=== PATIENT | female | born 1975 | race Caucasian/White ===

== ENCOUNTER → 2020-12-13 | Outpatient (CLI) | payer MEDICAID ==
[2020-12-13 11:53] LABS: Basophils # (A) 0.09 X 10*3/uL (0.00-0.10); Basophils % (A) 1.3 %; Eosinophils # (A) 0.33 X 10*3/uL (0.04-0.35); Eosinophils % (A) 4.8 %; HCT 46.1 % (37.2-46.3); HGB 15.2 g/dL (12.0-15.0); Lymphocytes # (A) 1.58 X 10*3/uL (0.90-5.00); MCV 94.1 fL (80.0-97.0); Mean Platelet Volume 11.9 fL (9.5-12.2); Monocytes % (A) 7.3 %; Neutrophils # (A) 4.35 X 10*3/uL (1.80-7.70); Neutrophils % (A) 63.2 %; Platelet Count 197 X 10*3/uL (140-440); RDW 12.3 % (11.5-14.5); WBC 6.88 X 10*3/uL (4.50-10.00)
[2020-12-13 17:29] LABS: BUN/Creat Ratio 15.99 Ratio (12.00-20.00); Globulin 2.9 g/dL (1.6-3.3)
[2020-12-13 17:30] LABS: African American GFR (CKD) 86.7 (60.0-200.0); Albumin 4.7 g/dL (3.8-4.9); Albumin/Globulin Ratio 1.63 (1.60-3.17); Anion Gap 16.5 mmol/L (4.00-12.00); Blood Urea Nitrogen 14.6 mg/dL (9.0-27.0); Calcium 9.6 mg/dL (8.7-10.3); Chol/HDL Ratio 4.69 Ratio; HDL Cholesterol 33.5 mg/dL (40.00-60.00); LDL Cholesterol,Calculated 47.1 mg/dL (0.0-131.0); Non-African American GFR(CKD) 74.8 (60.0-200.0); Potassium 4.7 mmol/L (3.5-5.5); T4, Free (Free Thyroxine) 1.07 ng/dL (0.800-1.800); Total Bilirubin 0.3 mg/dL (0.30-1.20); Total Protein 7.6 g/dL (6.2-8.2); VLDL Calculation 76.4 mg/dL (5.00-40.00)
== END | disposition home or self-care (01) ==
LOC: LABWHC1 07:19
PROVIDERS: ATTEND Internal Medicine
DX: Z11.59 Encounter for screening for other viral diseases (principal); E11.9 Type 2 diabetes mellitus without complications
CPT/HCPCS: 36415; 80053; 80061; 83036; 84439; 84443; 85025; 86803

== ENCOUNTER → 2021-01-02 | Outpatient (CLI) | payer MEDICAID ==
--- NOTE | 2021-01-02 16:21 | MR ---
EXAMINATION TYPE: MR iac wo/w con DATE OF EXAM: 01/02/2021 COMPARISON: NONE HISTORY: Tinnitus, left-sided Hearing Loss, Vertigo TECHNIQUE: Multiplanar, multisequence images of the brain and brainstem is performed without and with IV contras t, utilizing 8.5 mL intravenous Gadavist . Acoustic nerve disorder protocol. FINDINGS: Diffusion weighted images demonstrate no evidence of a recent infarct or other diffusion ab normality. The ventricular system and cisternal spaces are normal in size and appearance. The brain volume is age appropriate. Occasional T2 hyperintense focus, less than 5 scattered lesions are seen. For reference is a 4 mm lesion posterior left frontal lobe axial image 20. Midline structures demonstrate somewhat empty sella morphology. The craniocervical junction appears within normal limits. Normal vascular flow voids are present. A few small mucous retention cysts and/ or polyps in the inferior aspect bilateral maxillary sinuses. Globes are intact bilaterally. Some pro minence of CSF in the surrounding optic nerve sheaths. Nasal septum slightly deviated to right of mid line. No suspicious opacification of the mastoid air cells bilaterally. The vestibulocochlear complexes are symmetric and felt within normal limits. No suspicious enhancing cerebellopontine angle mass is iden tified bilaterally. IMPRESSION: No suspicious findings seen to account for patient's symptoms of tinnitus and left-sided hearing loss. Possible underlying intracranial hypertension. Correlate clinically. Minimal nonspecifi c white matter changes.
== END | disposition home or self-care (01) ==
LOC: RADMRIMAIN 15:13
PROVIDERS: ATTEND Otolaryngology
DX: R42 Dizziness and giddiness (principal); H93.12 Tinnitus, left ear
CPT/HCPCS: 70553; A9585

== ENCOUNTER → 2021-02-02 | Outpatient (CLI) | payer MEDICAID ==
--- NOTE | 2021-02-05 12:19 | MM ---
Reason for exam: screening (asymptomatic). Last mammogram was performed 2 years and 1 month ago. History: Patient is nulliparous. Physical Findings: A clinical breast exam by your physician is recommended on an annual basis and results should be correlated with mammographic findings. MG 3D Screening Mammo W/Cad Bilateral CC and MLO view(s) were taken. Prior study comparison: December 31, 2018, mammogram. November 09, 2016, mammogram. The breast tissue is heterogeneously dense. This may lower the sensitivity of mammography. There is no discrete abnormality. ASSESSMENT: Negative, BI-RAD 1 RECOMMENDATION: Routine screening mammogram of both breasts in 1 year.
== END | disposition home or self-care (01) ==
LOC: RADMAMWWP 13:51
PROVIDERS: ATTEND Internal Medicine
DX: Z12.31 Encounter for screening mammogram for malignant neoplasm of breast (principal)
CPT/HCPCS: 77063; 77067

== ENCOUNTER → 2021-02-19 | Outpatient (CLI) | payer MEDICAID ==
[2021-02-19 11:45] LABS: Creatine Kinase 90 U/L (26-186)
[2021-02-19 11:46] LABS: C Reactive Protein <0.30 mg/dL (0.00-0.80); Rheumatoid Factor, Qnt <10 IU/mL (0-15)
[2021-02-19 21:32] LABS: Appearance,CSF Clear; CSF Tube Number 4; CSF Tube Volume 2; Nucleated Cells, CSF 0 u/L (0-5); Red Blood Cell,CSF 0 u/L (0-10)
[2021-02-19 21:44] LABS: Total Protein,CSF 42 mg/dL (12-60)
== END | disposition home or self-care (01) ==
LOC: LABWHC1 07:43
PROVIDERS: ATTEND Psychiatry & Neurology Neurology
DX: H53.8 Other visual disturbances (principal); H46.9 Unspecified optic neuritis; R90.82 White matter disease, unspecified; R51.9 Headache, unspecified
CPT/HCPCS: 36415; 82040; 82042; 82550; 82784; 83873; 83916; 84157; 85652; 86038; 86140; 86431; 87529; 89050

== ENCOUNTER → 2021-08-23 | Outpatient (CLI) | payer MEDICAID ==
--- NOTE | 2021-08-24 07:15 | US ---
EXAMINATION TYPE: US pelvis complete transvag DATE OF EXAM: 08/23/2021 COMPARISON: NONE CLINICAL HISTORY: R10.2 Pelvic Pain. LT ADNEXA PAIN x 2 MONTHS, Hx OF OVARIAN CYSTS TECHNIQUE: Transvaginal (TV) and Transabdominal (TA) . Transabdominal sonographic images of the pel vis were acquired. Transvaginal sonographic images were medically necessary to better assess the fol lowing anatomy: Date of LMP: 08/03/2021 EXAM MEASUREMENTS: Uterus: 8.9 x 3.5 x 5.0 cm Endometrial Stripe: 0.8 cm Right Ovary: 4.1 x 2.5 x 3.1 cm Left Ovary: 3.6 x 1.5 x 2.5 cm 1. Uterus: Anteverted HETEROGENOUS, ANTERIOR ROUND HETEROGENOUS AREA NOTED FIONA. 1.2 x 1.5 x 1.5cm , MULTIPLE CYSTIC AREAS NOTED IN CERVIX AREA 2. Endometrium: HETEROGENOUS 3. Right Ovary: CYSTIC AREA NOTED FIONA. 2.0x 2.4 x 2.4cm 4. Left Ovary: MULTIPLE HYPOECHOIC AREAS NOTED, LARGEST FIONA. 1.6 x 1.8 x 1.5cm 5. Bilateral Adnexa: wnl 6. Posterior cul-de-sac: wnl IMPRESSION: 1. Probable leiomyomatous change of the uterus. 2. Probable functional right ovarian cyst. Follicular cyst left ovary.
== END | disposition home or self-care (01) ==
LOC: RADUSWWP 15:36
PROVIDERS: ATTEND Obstetrics & Gynecology
DX: N83.02 Follicular cyst of left ovary (principal)
CPT/HCPCS: 76830; 76856

== ENCOUNTER → 2022-03-05 | Outpatient (CLI) | payer MEDICAID ==
--- NOTE | 2022-03-06 18:45 | MM ---
Reason for Exam: Screening (asymptomatic). Last mammogram was performed 1 year(s) and 1 month(s) ago. Patient History: Menarche at age 12. Patient has no children. Last menstrual period: 02/27/2022 Risk Values: Mariana 5 year model risk: 0.9%. NCI Lifetime model risk: 9.3%. Prior Study Comparison: 11/09/2016 Screening Mammogram, Unknown. 12/31/2018 Screening Mammogram, Unknown. 02/02/2021 Bilateral Screening Mammogram, [facility]. Tissue Density: There are scattered fibroglandular densities. Findings: Analyzed By CAD. There is no suspicious group of microcalcifications or new suspicious mass in either breast. Overall Assessment: Negative, BI-RAD 1 Management: Screening Mammogram of both breasts in 1 year. 1. Patient should continue monthly self breast exams. 2. A clinical breast exam by your physician is recommended on an annual basis. 3. This exam should not preclude additional follow-up of suspicious palpable abnormalities. Electronically signed and approved by: Karla iDnh M.D. Radiologist
== END | disposition home or self-care (01) ==
LOC: RADMAMWWP 15:57
PROVIDERS: ATTEND Internal Medicine
DX: Z12.31 Encounter for screening mammogram for malignant neoplasm of breast (principal)
CPT/HCPCS: 77063; 77067

== ENCOUNTER → 2022-03-13 | Outpatient (CLI) | payer MEDICAID ==
[2022-03-13 14:57] LABS: Basophils # (A) 0.08 X 10*3/uL (0.00-0.10); Basophils % (A) 1.4 %; Eosinophils # (A) 0.31 X 10*3/uL (0.04-0.35); Eosinophils % (A) 5.6 %; HGB 14.8 g/dL (12.0-15.0); Immature Grans, Automated 0.4 %; Lymphocytes # (A) 1.79 X 10*3/uL (0.90-5.00); Lymphocytes % (A) 32.1 %; MCH 32.1 pg (27.0-32.0); MCHC 32.9 g/dL (32.0-37.0); MCV 97.6 fL (80.0-97.0); Mean Platelet Volume 11.5 fL (9.5-12.2); Monocytes # (A) 0.48 X 10*3/uL (0.20-1.00); Monocytes % (A) 8.6 %; NRBC Per 100 WBC 0 /100 WBCS (0.0-0.0); Neutrophils % (A) 51.9 %; Platelet Count 191 X 10*3/uL (140-440); RBC 4.61 X 10*6/uL (4.10-5.20); RDW 12.9 % (11.5-14.5); WBC 5.58 X 10*3/uL (4.50-10.00)
[2022-03-13 16:35] LABS: ALT 36 U/L (8-44); AST 18 U/L (13-35); African American GFR (CKD) 96.1 (60.0-200.0); Albumin 4.4 g/dL (3.8-4.9); Albumin/Globulin Ratio 1.78 (1.60-3.17); Alkaline Phosphatase 49 U/L (41-126); BUN/Creat Ratio 17.51 Ratio (12.00-20.00); Blood Urea Nitrogen 14.6 mg/dL (9.0-27.0); Calcium 9.1 mg/dL (8.7-10.3); Carbon Dioxide 24.1 mmol/L (20.0-27.5); Chloride 104 mmol/L (96-109); Chol/HDL Ratio 3.34 Ratio; Globulin 2.5 g/dL (1.6-3.3); Glucose 120 mg/dL (70-110); LDL Cholesterol,Calculated 35.5 mg/dL (0.0-131.0); Non-African American GFR(CKD) 82.9 (60.0-200.0); Potassium 4.3 mmol/L (3.5-5.5); Sodium 140 mmol/L (135-145); Total Protein 6.9 g/dL (6.2-8.2)
== END | disposition home or self-care (01) ==
LOC: LABWHC1 07:01
PROVIDERS: ATTEND Internal Medicine
DX: E11.9 Type 2 diabetes mellitus without complications (principal)
CPT/HCPCS: 36415; 80053; 80061; 83036; 84443; 85025

== ENCOUNTER → 2022-12-25 | Outpatient (CLI) | payer MEDICAID ==
[2022-12-25 11:02] LABS: Basophils % (A) 1.6 %; Eosinophils # (A) 0.33 X 10*3/uL (0.04-0.35); Eosinophils % (A) 5.3 %; HCT 43.9 % (37.2-46.3); HGB 14.7 d/dL (12.0-15.0); Lymphocytes # (A) 1.94 X 10*3/uL (0.90-5.00); Lymphocytes % (A) 31.1 %; MCHC 33.5 d/dL (32.0-37.0); MCV 95.4 FL (80.0-97.0); Mean Platelet Volume 11.1 FL (9.5-12.2); Monocytes # (A) 0.49 X 10*3/uL (0.20-1.00); Monocytes % (A) 7.9 %; NRBC Per 100 WBC 0 X 10*3/uL (0.00-0.01); Neutrophils # (A) 3.36 X 10*3/uL (1.80-7.70); Neutrophils % (A) 53.8 %; Platelet Count 218 X 10*3/uL (140-440); RDW 12.7 % (11.5-14.5); WBC 6.24 X 10*3/uL (4.50-10.00)
[2022-12-25 11:10] LABS: ALT 34 U/L (8-44); AST 17 U/L (13-35); Albumin 4.5 d/dL (3.8-4.9); Albumin/Globulin Ratio 1.73 Ratio (1.60-3.17); Alkaline Phosphatase 47 U/L (41-126); BUN/Creat Ratio 17.88 Ratio (12.00-20.00); Blood Urea Nitrogen 14.3 mg/dL (9.0-27.0); Calcium 9.4 mg/dL (8.7-10.3); Carbon Dioxide 22.9 mmol/L (21.6-31.8); Chloride 106 mmol/L (96-109); Chol/HDL Ratio 3.67 Ratio; Globulin 2.6 d/dL (1.6-3.3); Glucose 128 mg/dL (70-110); LDL Cholesterol,Calculated 33.5 mg/dL (0.0-131.0); Potassium 4.7 mmol/L (3.5-5.5); Sodium 141 mmol/L (135-145); Total Bilirubin 0.3 mg/dL (0.3-1.2); Total Protein 7.1 d/dL (6.2-8.2); Uric Acid 5.6 mg/dL (2.9-7.7)
== END | disposition home or self-care (01) ==
LOC: LABWHC1 07:05
PROVIDERS: ATTEND Internal Medicine
DX: E11.9 Type 2 diabetes mellitus without complications (principal); E78.5 Hyperlipidemia, unspecified; M25.572 Pain in left ankle and joints of left foot
CPT/HCPCS: 36415; 80053; 80061; 84443; 84550; 85025

== ENCOUNTER → 2023-03-31 | Outpatient (CLI) | payer MEDICAID ==
--- NOTE | 2023-03-31 22:18 | MM ---
Reason for Exam: Screening (asymptomatic). Last screening mammogram was performed 12 month(s) ago. Patient History: Menarche at age 12. Patient has no children. Perimenopausal. Last menstrual period: 03/21/2023 Risk Values: Mariana 5 year model risk: 0.9%. NCI Lifetime model risk: 9.2%. Prior Study Comparison: 11/09/2016 Screening Mammogram, Unknown. 12/31/2018 Screening Mammogram, Unknown. 02/02/2021 Bilateral Screening Mammogram, [facility]. 03/05/2022 Bilateral MG 3D screening mammo w/cad, [facility]. Tissue Density: The breast tissue is heterogeneously dense. This may lower the sensitivity of mammography. Findings: Analyzed By CAD. The pattern is symmetrical. Pattern appears symmetrical No suspicious groups of microcalcifications, spiculated or lobular masses, architectural distortion or other secondary signs of malignancy are mammographically apparent. Overall Assessment: Benign, BI-RAD 2 Management: Screening Mammogram of both breasts in 1 year. A negative mammogram report should not preclude additional follow up of suspicious palpable abnormalities. Patient should continue monthly self breast exam. A clinical breast exam by your physician is recommended on an annual basis and results should be correlated with mammographic findings. Electronically signed and approved by: Anjum Sprague D.O. Radiologis
== END | disposition home or self-care (01) ==
LOC: RADMAMWWP 07:15
PROVIDERS: ATTEND Internal Medicine
DX: Z12.31 Encounter for screening mammogram for malignant neoplasm of breast (principal)
CPT/HCPCS: 77063; 77067

== ENCOUNTER → 2023-06-03 | Outpatient (CLI) | payer MEDICAID ==
[2023-06-03 11:06] LABS: Basophils # (A) 0.07 X 10*3/uL (0.00-0.10); Basophils % (A) 1.1 %; Eosinophils # (A) 0.22 X 10*3/uL (0.04-0.35); Eosinophils % (A) 3.6 %; HCT 43.8 % (37.2-46.3); HGB 14.5 g/dL (12.0-15.0); Lymphocytes # (A) 2.07 X 10*3/uL (0.90-5.00); Lymphocytes % (A) 33.8 %; MCH 31.7 pg (27.0-32.0); MCHC 33.1 g/dL (32.0-37.0); MCV 95.6 FL (80.0-97.0); Mean Platelet Volume 11.2 FL (9.5-12.2); Monocytes # (A) 0.47 X 10*3/uL (0.20-1.00); Monocytes % (A) 7.7 %; NRBC Per 100 WBC 0 X 10*3/uL (0.00-0.01); Neutrophils # (A) 3.27 X 10*3/uL (1.80-7.70); Neutrophils % (A) 53.3 %; Platelet Count 178 X 10*3/uL (140-440); RBC 4.58 X 10*6/uL (4.10-5.20); RDW 13.1 % (11.5-14.5); WBC 6.13 X 10*3/uL (4.50-10.00)
[2023-06-03 11:27] LABS: ALT 40 U/L (8-44); AST 24 U/L (13-35); Albumin 4.6 g/dL (3.8-4.9); Albumin/Globulin Ratio 1.59 Ratio (1.60-3.17); Alkaline Phosphatase 50 U/L (41-126); BUN/Creat Ratio 21.88 Ratio (12.00-20.00); Blood Urea Nitrogen 17.5 mg/dL (9.0-27.0); Calcium 9.6 mg/dL (8.7-10.3); Carbon Dioxide 27.1 mmol/L (21.6-31.8); Chloride 102 mmol/L (96-109); Chol/HDL Ratio 3.23 Ratio; Globulin 2.9 g/dL (1.6-3.3); Glucose 134 mg/dL (70-110); LDL Cholesterol,Calculated 29.6 mg/dL (0.0-131.0); Lipase 25 U/L (14-63); Potassium 4.7 mmol/L (3.5-5.5); Sodium 139 mmol/L (135-145); Total Bilirubin 0.3 mg/dL (0.3-1.2); Total Protein 7.5 g/dL (6.2-8.2)
== END | disposition home or self-care (01) ==
LOC: LABWHC1 06:58
PROVIDERS: ATTEND Internal Medicine
DX: E11.9 Type 2 diabetes mellitus without complications (principal); R10.13 Epigastric pain
CPT/HCPCS: 36415; 80053; 80061; 83690; 84443; 85025

== ENCOUNTER → 2023-06-11 | Outpatient (CLI) | payer MEDICAID ==
--- NOTE | 2023-06-12 12:43 | US ---
EXAMINATION TYPE: US abdomen complete DATE OF EXAM: 06/11/2023 COMPARISON: NONE CLINICAL INDICATION: Female, 48 years old with history of R10.13 EPIGASTRIC PAIN; epigastric pain x 2 -3 months TECHNIQUE: Multiple sonographic images of the abdomen are obtained. FINDINGS: EXAM MEASUREMENTS: Liver Length: 21.2 cm Gallbladder Wall: 0.2 cm CBD: 0.4 cm Spleen: 10.9 cm Right Kidney: 12.0 x 4.5 x 5.1 cm Left Kidney: 11.2 x 4.9 x 6.4 cm Pancreas: Limited by bowel gas. Liver: enlarged liver is coarsened and slightly increased in echo pattern. Gallbladder: multiple mobile dependant stones seen, normal wall Evidence for sonographic Birch's sign: no CBD: wnl Spleen: wnl Right Kidney: wnl Left Kidney: wnl Upper IVC: wnl Abd Aorta: wnl. IMPRESSION: 1. Hepatomegaly correlate for underlying hepatocellular disease\hepatic steatosis. 2. Cholelithiasis with no diagnostic evidence of cholecystitis.
== END | disposition home or self-care (01) ==
LOC: RADUSWWP 06:51
PROVIDERS: ATTEND Internal Medicine
DX: R10.13 Epigastric pain (principal); R16.0 Hepatomegaly, not elsewhere classified; K76.0 Fatty (change of) liver, not elsewhere classified; K80.20 Calculus of gallbladder without cholecystitis without obstruction
CPT/HCPCS: 76700

== ENCOUNTER → 2024-06-18 | Outpatient (CLI) | payer MEDICAID, SELFPAY ==
--- NOTE | 2024-06-18 07:37 | MM ---
Reason for Exam: Screening (asymptomatic). Last mammogram was performed 1 year(s) and 3 month(s) ago. Patient History: Menarche at age 12. Patient has no children. Perimenopausal. Risk Values: Mariana 5 year model risk: 1.0%. NCI Lifetime model risk: 8.9%. Prior Study Comparison: 12/31/2018 Screening Mammogram, Unknown. 02/02/2021 Bilateral Screening Mammogram, [facility]. 03/05/2022 Bilateral MG 3D screening mammo w/cad, [facility]. 03/31/2023 Bilateral MG 3D screening mammo w/cad, [facility]. Tissue Density: The breasts are heterogeneously dense, which may obscure small masses. Findings: Analyzed By CAD. There is no suspicious group of microcalcifications or new suspicious mass in either breast. Overall Assessment: Benign, BI-RAD 2 Management: Screening Mammogram of both breasts in 1 year. . Patient should continue monthly self-breast exams. A clinical breast exam by your physician is recommended on an annual basis. This exam should not preclude additional follow-up of suspicious palpable abnormalities. Note on Mariana scores and lifetime risk: 1. A Mariana score greater than 3% is considered moderate risk. If this is the case, consider specialist referral to assess eligibility for a risk reducing agent. 2. If overall lifetime risk for the development of breast cancer is 20% or higher, the patient may qualify for future screening with alternating mammogram and breast MRI. [facility], , 06/18/2024 7:34 AM. Electronically signed and approved by: Geo Ch M.D. Radiologis
== END | disposition home or self-care (01) ==
LOC: RADMAMWWP 06:59
PROVIDERS: ATTEND Internal Medicine
DX: Z12.31 Encounter for screening mammogram for malignant neoplasm of breast (principal); R92.333 Mammographic heterogeneous density, bilateral breasts
CPT/HCPCS: 77063; 77067

== ENCOUNTER 2024-08-18 21:23 | Inpatient (IN) | payer MEDICAID ==
--- NOTE | 2024-08-18 21:54 | ED ---
General Adult HPI - General Chief complaint: Headache Stated complaint: Head pain Time Seen by Provider: 08/18/24 21:32 Source: EMS Mode of arrival: EMS - History of Present Illness Initial comments: Patient is a pleasant 49-year-old female past medical history diabetes presenting today for headache. States she has been treated for sinus infection since having a cough on Friday. She was started on Medrol Dosepak and Z-Doyle on Friday by local urgent care. Has had a persistent cough since then, states her symptoms were at their peak yesterday. Today she was coughing about 30 minutes prior to arrival and had sudden onset sharp headache at the front of her head. States she has never had a headache like this before. Denies neck pain. Denies changes in vision, numbness, weakness, slurred speech, dizziness. No pain medications prior to arrival. Rates pain as 8 out of 10. Denies light or sound sensitivity. Is not on blood thinners. Denies fevers or chills. Cough is nonproductive of sputum or hemoptysis. Nasal congestion, no thick nasal discharge. No sore throat. When asked about shortness of breath she states that "I suppose my chest feels tight" which started with onset of her headache. States she is not sure if this is due to being anxious about what could be causing her headache or from recent URI. Otherwise denies chest pain. Denies abdominal pain, nausea, vomiting, melena, hematochezia or diarrhea. - Related Data Home Medications Medication Instructions Recorded Confirmed Atorvastatin [Lipitor] 20 mg PO DAILY 08/19/24 08/19/24 Azithromycin [Zithromax Z Pack] See Taper PO DIRECTED 08/19/24 08/19/24 Dulaglutide [Trulicity] 4.5 mg SQ FR 08/19/24 08/19/24 Empagliflozin [Jardiance] 25 mg PO DAILY 08/19/24 08/19/24 Fenofibrate [Lofibra] 160 mg PO DAILY 08/19/24 08/19/24 L.acidoph,Paracasei, B.lactis 1 cap PO DAILY 08/19/24 08/19/24 [Probiotic] methylPREDNISolone [Medrol Dose See Taper PO DIRECTED 08/19/24 08/19/24 Pack] Allergies Allergy/AdvReac Type Severity Reaction Status Date / Time No Known Allergies Allergy Verified 08/19/24 07:24 Review of Systems ROS Statement: Those systems with pertinent positive or pertinent negative responses have been documented in the HPI. ROS Other: All systems not noted in ROS Statement are negative. Constitutional: Denies: fever, chills Eyes: Denies: vision change ENT: Reports: congestion. Denies: ear pain, throat pain Respiratory: Reports: cough, dyspnea (described as chest tightness). Denies: wheezes, hemoptysis Cardiovascular: Reports: chest pain (as above, described as chest tightness) Gastrointestinal: Denies: abdominal pain, nausea, vomiting, diarrhea, melena, hematochezia Genitourinary: Denies: urgency, dysuria Neurological: Reports: headache. Denies: weakness, numbness, paresthesias, vertigo Psychiatric: Reports: anxiety Past Medical History Past Surgical History: Cholecystectomy General Exam - General Exam Comments Initial Comments: PE: CONSTITUTIONAL: No apparent distress, well appearing SKIN: Warm, dry, no jaundice, hives or petechiae EYES: Pupils are equally round, extraocular movements intact without nystagmus, clear conjunctiva, non-icteric sclera HENT: Normocephalic, atraumatic, moist mucus membranes, oropharynx clear without exudates, no sinus tenderness or fullness, nasal congestion present NECK: , Full range of motion, normal appearance PULMONARY: Clear to auscultation without wheezes, rhonchi, or rales, normal excursion, no accessory muscle use and no stridor CARDIOVASCULAR: Regular rate, rhythm, normal S1 and S2. No appreciated murmurs, rubs or gallops. Strong radial pulses with intact distal perfusion. No lower extremity edema GASTROINTESTINAL: Soft, active bowel sounds throughout, non-tender, non- distended, no palpable masses, no rebound or guarding. No hepatosplenomegaly GENITOURINARY: MUSCULOSKELETAL: Extremities have no gross deformity, no edema, redness, or swelling. No calf swelling NEUROLOGIC:_a/o x 3, GCS 15, normal mentation and speech. Moves all extremities x 4 without motor or sensory deficit, cranial nerves: II (visual escamilla without defects), III, IV and (extraocular movements are intact, pupils are equal with normal reaction to light), V (intact facial sensation and jaw opening), VII (no facial droop), IX and X (normal palate movement, midline uvula, normal voice), XI (symmetrical shoulder shrug and lateral head rotation against resistance), XII (midline tongue protrusion). Motor strength is 5/5 in all extremities. No abnormal movements. Normal muscle tone. Sensation to light touch is intact bilaterally. No cerebellar signs ([id number], [id number], normal) PSYCHIATRIC:_normal mood and affect, thought process is clear and linear Course Vital Signs 08/18/24 08/18/24 08/18/24 21:26 21:30 23:24 Temperature 97.8 F 98.0 F Pulse Rate 69 82 Respiratory 18 18 Rate Blood Pressure 147/103 152/91 136/88 O2 Sat by Pulse 95 95 Oximetry 08/19/24 08/19/24 08/19/24 01:00 02:24 04:00 Temperature Pulse Rate 82 89 66 Respiratory 18 18 Rate Blood Pressure 118/72 120/77 126/79 O2 Sat by Pulse 94 L 97 94 L Oximetry 08/19/24 08/19/24 08/19/24 05:00 06:00 07:30 Temperature 97.8 F Pulse Rate 64 75 76 Respiratory 14 18 16 Rate Blood Pressure 119/80 116/79 124/75 O2 Sat by Pulse 94 L 95 95 Oximetry 08/19/24 08/19/24 08/19/24 08:44 11:53 14:31 Temperature Pulse Rate 82 68 84 Respiratory 18 18 16 Rate Blood Pressure 131/107 130/80 135/80 O2 Sat by Pulse 97 96 96 Oximetry 08/19/24 17:24 Temperature Pulse Rate 81 Respiratory 18 Rate Blood Pressure 128/87 O2 Sat by Pulse 95 Oximetry EKG Findings - EKG Comments: EKG Findings:: Sinus rhythm, rate 62 bpm, intervals within acceptable limits, normal axis, no significant ST elevations or depressions, no arrhythmia. Repeat EKG obtained at 00:15, after pt's episode of chest pain, Shows sinus rhythm HR 81 BPM, intervals w/in acceptable limites, no STEMI, no arrythmia Medical Decision Making - Medical Decision Making Was pt. sent in by a medical professional or institution (, PA, QUARRYING MANAGER, urgent care, hospital, or [facility]...) When possible be specific @ -No Did you speak to anyone other than the patient for history (EMS, parent, family, police, friend...)? What history was obtained from this source @Spoke with EMS personnel, state they were called for sudden onset headache. Blood pressure per EMS was 150/120 Did you review nursing and triage notes (agree or disagree)? Why? @ -I reviewed nursing and triage notes- of note triage note states that the patient has a history of high cholesterol, patient denied Were old charts reviewed (outside hosp., previous admission, EMS record, old EKG, old radiological studies, urgent care reports/EKG's, [facility] records)? Report findings @ -Medical records reviewed Differential Diagnosis (chest pain, altered mental status, abdominal pain women, abdominal pain men, vaginal bleeding, weakness, fever, dyspnea, syncope, headache, dizziness, GI bleed, back pain, seizure, CVA, palpatations, mental he alth, musculoskeletal)? @Differential Headache: Migraine, tension, cluster, central venous thrombosis, temporal arteritis, acute closure glaucoma, intercranial hemorrhage, mastoiditis, sinusitis, head injury, this is not meant to be an all-inclusive list. EKG interpreted by me (3pts min.). @ -As above X-rays interpreted by me (1pt min.). @Reviewed chest x-ray, see no evidence of cardiomegaly, obvious consolidation, no pneumothorax; Radiologist read as findings consistent with bronchitis CT interpreted by me (1pt min.). @ -Personally reviewed CT brain, I see no evidence of hemorrhage or mass effect, agree with radiologist interpretation U/S interpreted by me (1pt. min.). @ -None done What testing was considered but not performed or refused? (CT, X-rays, U/S, labs)? Why? @ -None What meds were considered but not given or refused? Why? @ -None Did you discuss the management of the patient with other professionals (professionals i.e. , PA, QUARRYING MANAGER, lab, RT, psych nurse, social services designee, lithographer apprentice, teacher, recreation officer, case management manager)? Give summary @ -No Was smoking cessation discussed for >3mins.? @ -No Was critical care preformed (if so, how long)? @ Yes 35 minutes Were there social determinants of health that impacted care today? How? (Homelessness, low income, unemployed, alcoholism, drug addiction, transportation, low edu. Level, literacy, decrease access to med. care, halfway, re hab)? @ -No Was there de-escalation of care discussed even if they declined (Discuss DNR or withdrawal of care, Hospice)? @ -No What co-morbidities impacted this encounter? (DM, HTN, Smoking, COPD, CAD, Cancer, CVA, ARF, Chemo, Hep., AIDS, mental health diagnosis, sleep apnea, morbid obesity)? @ -DM Was patient admitted / discharged? Hospital course, mention meds given and route, prescriptions, significant lab abnormalities, going to OR and other pertinent info. @ -Admission -this is a pleasant 49-year female presenting today for sudden onset headache. Started about 30 minutes prior to arrival. Blood pressure on arrival 147/103. On my assessment is approximate 152/90. Headache started s harp in nature. She has no focal neurologic deficits on exam. Does not appear to be in any distress. Discussed patient obtain CT brain. Additionally patient endorsed chest tightness onset of headache, I suspect this is secondary to recent URI and cough, will obtain troponin, chest x-ray, additional basic labs. Patient will be given pain control and IV fluids. Agreeable with plan. Patient did have a brief set of chest pain while waiting completion of workup. On reassessment patient's chest pain has resolved. Headache has improved. States pain was in the center of her chest and sharp in nature. She has no family history of CAD or strokes. Patient herself has never had a stroke or h eart attack. No history of high cholesterol, high blood pressure, is a non- smoker. Troponin 0.234. Will repeat EKG. Patient currently asymptomatic of chest pain. Additionally patient states she has had a prior DVT in her left arm, is a non-smoker, is not on hormone replacement therapy, no recent travel surgery or hospitalization, is not on blood thinning, will obtain D-dimer and BNP. Anticipate administration of aspirin however CT brain has not officially been read by radiologist though I see no evidence of hemorrhage. Patient agreeable with plan of care. CT read and read as negative for acute process. D-dimer of 0.25. Repeat troponin elevated again at 0.659. Will start patient on heparin infusion for NSTEMI and admit. Updated patient to findings and plan, she is agreeable with plan of care. Case was discussed with Dr. Taylor who kindly accepted patient for admission. Undiagnosed new problem with uncertain prognosis? @ -No Drug Therapy requiring intensive monitoring for toxicity (Heparin, Nitro, Insulin, Cardizem)? @ -No Were any procedures done? @ -No Diagnosis/symptom? @ -NSTEMI, headache Acute, or Chronic, or Acute on Chronic? @Acute Uncomplicated (without systemic symptoms) or Complicated (systemic symptoms)? @Complicated Side effects of treatment? @ -No Exacerbation, Progression, or Severe Exacerbation? @ -No Poses a threat to life or bodily function? How? (Chest pain, [place], [place], pneumonia, PE, COPD, DKA, ARF, appy, cholecystitis, CVA, Diverticulitis, Homicidal, Suicidal, threat to staff... and all critical care pts) @ -Yes - Lab Data Result diagrams: 08/19/24 06:08 08/19/24 06:08 Lab Results 08/18/24 08/18/24 08/18/24 Range/Units 22:00 22:37 22:50 WBC 5.91 (4.50-10.00) 10*3/uL RBC 4.44 (4.10-5.20) 10*6/uL Hgb 14.4 (12.0-15.0) g/dL Hct 40.9 (37.2-46.3) % MCV 92.1 (80.0-97.0) fL MCH 32.4 H (27.0-32.0) pg MCHC 35.2 (32.0-37.0) g/dL Plt Count 190 (140-440) 10*3/uL MPV 11.1 (9.5-12.2) fL Immature Gran % (Auto) 0.7 % Neutrophils % 66.6 % Lymphocytes % 22.8 % Monocytes % 7.4 % Eosinophils % 1.7 % Basophils % 0.8 % Immature Gran # 0.04 (0.00-0.04) 10*3/uL Neutrophils # 3.93 (1.80-7.70) 10*3/uL Lymphocytes # 1.35 (0.90-5.00) 10*3/uL Monocytes # 0.44 (0.20-1.00) 10*3/uL Eosinophils # 0.10 (0.04-0.35) 10*3/uL Basophils # 0.05 (0.00-0.10) 10*3/uL PT (10.0-12.5) sec INR (<1.2) APTT (22.0-30.0) sec D-Dimer (<0.60) mg/L FEU Sodium (137-145) mmol/L Potassium (3.5-5.1) mmol/L Chloride (98-107) mmol/L Carbon Dioxide (22-30) mmol/L Anion Gap mmol/L BUN (7-17) mg/dL Creatinine (0.52-1.04) mg/dL Est GFR (CKD-EPI)AfAm (>60 ml/min/1.73 sqM) Est GFR (CKD-EPI)NonAf (>60 ml/min/1.73 sqM) Glucose (74-99) mg/dL POC Glucose (mg/dL) 170 H (70-110) mg/dL POC Glu Helper Electrical ID EHSAN CASTELLANOS Calcium (8.4-10.2) mg/dL Total Bilirubin (0.2-1.3) mg/dL AST (14-36) U/L ALT (4-34) U/L Alkaline Phosphatase (38-126) U/L Troponin I (0.000-0.034) ng/mL NT-Pro-B Natriuret Pep pg/mL Total Protein (6.3-8.2) g/dL Albumin (3.5-5.0) g/dL Influenza Type A (PCR) Not Detected (Not Detectd) Influenza Type B (PCR) Not Detected (Not Detectd) RSV (PCR) Not Detected (Not Detectd) SARS-CoV-2 (PCR) Not Detected (Not Detectd) 08/18/24 08/18/24 08/18/24 Range/Units 22:50 22:50 22:50 WBC (4.50-10.00) 10*3/uL RBC (4.10-5.20) 10*6/uL Hgb (12.0-15.0) g/dL Hct (37.2-46.3) % MCV (80.0-97.0) fL MCH (27.0-32.0) pg MCHC (32.0-37.0) g/dL Plt Count (140-440) 10*3/uL MPV (9.5-12.2) fL Immature Gran % (Auto) % Neutrophils % % Lymphocytes % % Monocytes % % Eosinophils % % Basophils % % Immature Gran # (0.00-0.04) 10*3/uL Neutrophils # (1.80-7.70) 10*3/uL Lymphocytes # (0.90-5.00) 10*3/uL Monocytes # (0.20-1.00) 10*3/uL Eosinophils # (0.04-0.35) 10*3/uL Basophils # (0.00-0.10) 10*3/uL PT 11.2 (10.0-12.5) sec INR 1.0 (<1.2) APTT 21.3 L (22.0-30.0) sec D-Dimer (<0.60) mg/L FEU Sodium 136 L (137-145) mmol/L Potassium 4.0 (3.5-5.1) mmol/L Chloride 103 (98-107) mmol/L Carbon Dioxide 17 L (22-30) mmol/L Anion Gap 16 mmol/L BUN 21 H (7-17) mg/dL Creatinine 0.65 (0.52-1.04) mg/dL Est GFR (CKD-EPI)AfAm >90 (>60 ml/min/1.73 sqM) Est GFR (CKD-EPI)NonAf >90 (>60 ml/min/1.73 sqM) Glucose 172 H (74-99) mg/dL POC Glucose (mg/dL) (70-110) mg/dL POC Glu Helper Electrical ID Calcium 9.4 (8.4-10.2) mg/dL Total Bilirubin 0.7 (0.2-1.3) mg/dL AST 31 (14-36) U/L ALT 37 H (4-34) U/L Alkaline Phosphatase 64 (38-126) U/L Troponin I 0.234 H* (0.000-0.034) ng/mL NT-Pro-B Natriuret Pep pg/mL Total Protein 7.9 (6.3-8.2) g/dL Albumin 4.6 (3.5-5.0) g/dL Influenza Type A (PCR) (Not Detectd) Influenza Type B (PCR) (Not Detectd) RSV (PCR) (Not Detectd) SARS-CoV-2 (PCR) (Not Detectd) 08/19/24 08/19/24 08/19/24 Range/Units 00:53 00:53 00:53 WBC (4.50-10.00) 10*3/uL RBC (4.10-5.20) 10*6/uL Hgb (12.0-15.0) g/dL Hct (37.2-46.3) % MCV (80.0-97.0) fL MCH (27.0-32.0) pg MCHC (32.0-37.0) g/dL Plt Count (140-440) 10*3/uL MPV (9.5-12.2) fL Immature Gran % (Auto) % Neutrophils % % Lymphocytes % % Monocytes % % Eosinophils % % Basophils % % Immature Gran # (0.00-0.04) 10*3/uL Neutrophils # (1.80-7.70) 10*3/uL Lymphocytes # (0.90-5.00) 10*3/uL Monocytes # (0.20-1.00) 10*3/uL Eosinophils # (0.04-0.35) 10*3/uL Basophils # (0.00-0.10) 10*3/uL PT (10.0-12.5) sec INR (<1.2) APTT (22.0-30.0) sec D-Dimer 0.25 (<0.60) mg/L FEU Sodium (137-145) mmol/L Potassium (3.5-5.1) mmol/L Chloride (98-107) mmol/L Carbon Dioxide (22-30) mmol/L Anion Gap mmol/L BUN (7-17) mg/dL Creatinine (0.52-1.04) mg/dL Est GFR (CKD-EPI)AfAm (>60 ml/min/1.73 sqM) Est GFR (CKD-EPI)NonAf (>60 ml/min/1.73 sqM) Glucose (74-99) mg/dL POC Glucose (mg/dL) (70-110) mg/dL POC Glu Helper Electrical ID Calcium (8.4-10.2) mg/dL Total Bilirubin (0.2-1.3) mg/dL AST (14-36) U/L ALT (4-34) U/L Alkaline Phosphatase (38-126) U/L Troponin I 0.659 H* (0.000-0.034) ng/mL NT-Pro-B Natriuret Pep 108 pg/mL Total Protein (6.3-8.2) g/dL Albumin (3.5-5.0) g/dL Influenza Type A (PCR) (Not Detectd) Influenza Type B (PCR) (Not Detectd) RSV (PCR) (Not Detectd) SARS-CoV-2 (PCR) (Not Detectd) Disposition Clinical Impression: NSTEMI (non-ST elevated myocardial infarction) Disposition: ADMITTED IP TO THIS HOSP Condition: Stable Is patient prescribed a controlled substance at d/c from ED?: No
[2024-08-18 22:38] LABS: Glucose,Whole Blood 170 mg/dL (70-110)
[2024-08-18 22:46] LABS: Influenza A Not Detected (Not Detectd); Influenza B Not Detected (Not Detectd); RSV Not Detected (Not Detectd)
[2024-08-18] MEDS: ACETAMINOPHEN TAB 325 MG TAB PO STA (22:56)
[2024-08-18 22:58] LABS: Basophils # (A) 0.05 10*3/uL (0.00-0.10); Basophils % (A) 0.8 %; Eosinophils % (A) 1.7 %; HCT 40.9 % (37.2-46.3); HGB 14.4 g/dL (12.0-15.0); Lymphocytes # (A) 1.35 10*3/uL (0.90-5.00); Lymphocytes % (A) 22.8 %; MCH 32.4 pg (27.0-32.0); MCHC 35.2 g/dL (32.0-37.0); MCV 92.1 fL (80.0-97.0); Mean Platelet Volume 11.1 fL (9.5-12.2); Monocytes # (A) 0.44 10*3/uL (0.20-1.00); Monocytes % (A) 7.4 %; Neutrophils # (A) 3.93 10*3/uL (1.80-7.70); Neutrophils % (A) 66.6 %; Platelet Count 190 10*3/uL (140-440); RBC 4.44 10*6/uL (4.10-5.20); RDW 11.9 % (11.5-14.5); WBC 5.91 10*3/uL (4.50-10.00)
[2024-08-18] MEDS: ONDANSETRON 4 MG/2 ML VIAL IVP STA (22:58)
[2024-08-18] MEDS: MORPHINE SULFATE 4 MG/ML SYRINGE IV STA (23:03)
[2024-08-18] MEDS: diphenhydrAMINE 50 MG/ML 1 ML VIAL IVP STA (23:08)
[2024-08-18] MEDS: METOCLOPRAMIDE 5 MG/ML 2 ML VIAL IVP STA (23:12)
[2024-08-18 23:14] LABS: Prothrombin Time 11.2 sec (10.0-12.5)
[2024-08-18 23:18] LABS: Partial Thromboplastin Time 21.3 sec (22.0-30.0)
[2024-08-18] MEDS: SODIUM CHLORIDE 0.9% 1,000 ML IV STA (23:22)
[2024-08-18 23:25] LABS: ALT 37 U/L (4-34); AST 31 U/L (14-36); African American GFR (CKD) >90 (>60 ml/min/1.73 sqM); Albumin 4.6 g/dL (3.5-5.0); Alkaline Phosphatase 64 U/L (38-126); Anion Gap 16 mmol/L; Blood Urea Nitrogen 21 mg/dL (7-17); Calcium 9.4 mg/dL (8.4-10.2); Carbon Dioxide 17 mmol/L (22-30); Chloride 103 mmol/L (98-107); Glucose 172 mg/dL (74-99); Non-African American GFR(CKD) >90 (>60 ml/min/1.73 sqM); Sodium 136 mmol/L (137-145); Total Bilirubin 0.7 mg/dL (0.2-1.3); Total Protein 7.9 g/dL (6.3-8.2)
--- NOTE | 2024-08-19 00:12 | CT ---
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 CTDI is 49.2 mGy and DLP is 1156.4 mGy-cm. This CT exam was performed using one or more of the following dose reduction techniques: automated exposure control, adjustment of the mA and/or kV according to patient size, and/or use of iterative reconstruction technique. COMPARISON: No relevant prior studies available. FINDINGS: Brain: Unremarkable. No hemorrhage. No significant white matter disease. No edema. Empty sella with enlarged diaphragmatic sellae. Ventricles: Unremarkable. No ventriculomegaly. Bones/joints: Unremarkable. No acute fracture. Soft tissues: Unremarkable. Sinuses: Chronic pansinusitis. No acute sinusitis. Mastoid air cells: Unremarkable as visualized. No mastoid effusion. IMPRESSION: No evidence of acute intracranial pathology.
--- NOTE | 2024-08-19 00:53 | XR ---
EXAM: XR Chest, 2 Views CLINICAL HISTORY: ITS.REASON XR Reason: chest tightness, cough TECHNIQUE: Frontal and lateral views of the chest. COMPARISON: No relevant prior studies available. FINDINGS: Lungs: Mild to moderate peribronchial thickening of the central and lower lobe bronchi.. No consolidation. Pleural space: Unremarkable. No pneumothorax. Heart: Unremarkable. No cardiomegaly. Mediastinum: Unremarkable. Normal mediastinal contour. Bones/joints: Unremarkable. No acute fracture. IMPRESSION: Bronchitis, which may be of infectious or inflammatory etiologies. No consolidation or pleural effusion.
[2024-08-19] MEDS: ASPIRIN 81 MG PO STA (01:03)
[2024-08-19] MEDS ORDERED: MORPHINE SULFATE 2 MG/ML SYRINGE IVP PRN (02:14)
[2024-08-19] MEDS ORDERED: NITROGLYCERIN SL TABS 0.4 MG TAB SUBLINGUAL PRN (02:14)
[2024-08-19] MEDS ORDERED: DEXTROSE 50% SYRINGE 50 ML IVP PRN ×2 (03:13)
[2024-08-19] MEDS: HEPARIN SODIUM 1,000 UN/ML (10ML VL) IV ONE (03:16)
[2024-08-19] MEDS: HEPARIN SOD,PORK IN 0.45% NACL 25,000 UNIT in 0.45% NACL 1 250ML.BAG IV SCH (03:18)
[2024-08-19 04:06] LABS: Glucose,Whole Blood 111 mg/dL (70-110)
--- NOTE | 2024-08-19 06:40 | P.HPIM ---
History of Present Illness H&P Date: 08/19/24 Chief Complaint: headache Patient is a 49 year old female with past history of diabetes and cholecystectomy presented to the ED with headache. Patient states having cough since Friday and being treated for a sinus infection with Medrol Dosepak and Z- Doyle by urgent care. She reports having a persistent cough. Today she had a violent coughing episode and since then she had a sudden onset sharp headache and states that she has never had a headache like this before. Reported the pain is an 8 out of 10 severity. Associated with that she has experienced substernal chest pain, non radiating. She also experienced nausea. Moreover she reports epigastric discomfort which is similar to when she had her cholecystectomy last October. She also had a urethral sling placed in Jan 2023 and has been experiencing issues with that lately and has an appointment for evaluation for next . The patient had plans to go to [place] for her trip later today. Denies smoking, occasional alcohol intake. She reports history of CAD on her mother's side of the family. Denies fever, chills, palpitations, abdominal pain, vomiting, hematuria, dysuria, hematochezia, melena, headache, slurred speech, numbness, tingling, lightheadedness, blurred vision, double vision. ED documentation reviewed. In the ED patient was treated with acetaminophen, aspirin, metoclopramide, morphine, ondansetron, diphenhydramine, 0.9 normal saline. Vitals on admission T 97.8 F, CA 69 bpm, RR 18, BP 147/103, SPO2 95% on room air Most recent vital T 98 F, CA 89 bpm, RR 18, BP 120/77, SpO2 97% on room air EKG independently interpreted as sinus rhythm, rate 62 bpm, QTc 410 ms Chest x-ray shows bronchitis which may be of infectious or inflammatory etiologies, no consolidation or pleural effusion Brain CT shows no evidence of acute intracranial pathology Labs on admission show WBC 5.91, hemoglobin 14.4, platelet 190, INR 1.0, APTT 21.3, D-dimer 0.25, sodium 136, potassium 4.0, bicarb 17, anion gap 16, BUN 21, creatinine 0.65, glucose 172, ALT 37, NT-proBNP 108, troponin I 0.234, 0.659 Respiratory panel is negative Review of systems: Pertinent positives and negatives as discussed in HPI, a complete review of systems was performed and all other systems are negative. Physical examination: Vital signs reviewed General: nontoxic, no distress, appears at stated age Derm: warm, dry, intact Head: atraumatic, normocephalic, symmetric Eyes: EOMI, anicteric sclera Mouth: no lip lesion, mucus membranes moist Cardiovascular: S1 S2 reg, no murmur Lungs: CTA bilateral, no rhonchi, no rales, no accessory muscle use Abdominal: soft, non-tender to palpation Extremities: No cyanosis, clubbing, or pedal edema. Neuro: Alert, Oriented, Gross neurological examination did not reveal any focal deficits. Psych: well appearing, appropriate affect Assessment/Plan: Patient is a 49 year old female with past history of diabetes and cholecystectomy presented to the ED with headache. Patient admitted to internal medicine service. Active: #. NSTEMI #. Possible viral pericarditis/myocarditis troponin I 0.234, 0.659 EKG independently interpreted as sinus rhythm, rate 62 bpm, QTc 410 ms Received Aspirin 324 mg in the ED Start Lipitor 80 mg daily, Aspirin 81 mg PO daily, Metoprolol 25 mg PO BID Continue Heparin drip Continue Nitroglycerin 0.4 mg SL Q5M PRN Obtain echocardiogram Obtain lipid panel, TSH, A1c Continue to trend troponin Continue telemetry monitoring Cardiology consulted #. Type II diabetes mellitus A1c 6.8 in May 2024 Insulin sliding scale and [facility] blood glucose monitoring Monitor for hypoglycemia #. HAGMA + NAGMA LR at 100 ml/hr Monitor BMP Patient takes Jardiance and Trulicity at home, Resume home meds once verified by pharmacy F: LR at 100 ml/hr E: Replete as required N: NPO A: Bed rest DVT prophylaxis: Heparin drip The patient is admitted with an anticipated more than 2 midnight stay for evaluation of headache and chest pain CODE STATUS: FULL CODE Discussed with: Patient Anticipated discharge place: Pending clinical course Dictation was produced using [employer] dictation software. please excuse any grammatical, word or spelling errors. Norm Marcus MD PGY-1 IM Attestation : patient seen and examined with medical review specialist. Agree with above assessment and plan. She is a 49-year-old female patient with a past medical history of type 2 diabetes mellitus presented with chest pain. Recently treated for upper respiratory like infection. Her chest pain was substernal, nonexertional and sharp in quality. Troponin is elevated but no ischemic changes on EKG. Patient will be admitted for NSTEMI management and ACS protocol was started including heparin drip. Cardiology will be consulted. Insulin sliding scale for diabetes. Will order echocardiogram . Differential diagnosis including NSTEMI, myocarditis, pericarditis and congestive heart failure Time spent : 55 min Past Medical History Past Surgical History: Cholecystectomy Medications and Allergies Allergies Allergy/AdvReac Type Severity Reaction Status Date / Time No Known Allergies Allergy Verified 08/19/24 07:24 Physical Exam Vitals: Vital Signs Temp Pulse Resp BP Pulse Ox 08/19/24 01:00 82 18 118/72 94 L 08/18/24 23:24 98.0 F 82 18 136/88 95 08/18/24 21:30 152/91 08/18/24 21:26 97.8 F 69 18 147/103 95 Intake and Output 08/18/24 08/18/24 08/19/24 14:59 22:59 06:59 Other: Weight 86.183 kg Results CBC & Chem 7: 08/19/24 06:08 08/19/24 06:08 Labs: Abnormal Lab Results - Last 24 Hours (Table) 08/18/24 08/18/24 08/18/24 Range/Units 22:37 22:50 22:50 MCH 32.4 H (27.0-32.0) pg APTT 21.3 L (22.0-30.0) sec Sodium (137-145) mmol/L Carbon Dioxide (22-30) mmol/L BUN (7-17) mg/dL Glucose (74-99) mg/dL POC Glucose (mg/dL) 170 H (70-110) mg/dL ALT (4-34) U/L Troponin I (0.000-0.034) ng/mL 08/18/24 08/18/24 08/19/24 Range/Units 22:50 22:50 00:53 MCH (27.0-32.0) pg APTT (22.0-30.0) sec Sodium 136 L (137-145) mmol/L Carbon Dioxide 17 L (22-30) mmol/L BUN 21 H (7-17) mg/dL Glucose 172 H (74-99) mg/dL POC Glucose (mg/dL) (70-110) mg/dL ALT 37 H (4-34) U/L Troponin I 0.234 H* 0.659 H* (0.000-0.034) ng/mL
[2024-08-19] MEDS: LACTATED RINGERS 1,000 ML IV SCH (06:45)
[2024-08-19 07:03] LABS: HCT 39.6 % (37.2-46.3); HGB 13.5 g/dL (12.0-15.0); MCH 32.1 pg (27.0-32.0); MCHC 34.1 g/dL (32.0-37.0); MCV 94.1 fL (80.0-97.0); Mean Platelet Volume 10.8 fL (9.5-12.2); Platelet Count 198 10*3/uL (140-440); RBC 4.21 10*6/uL (4.10-5.20); RDW 12.1 % (11.5-14.5); WBC 7.43 10*3/uL (4.50-10.00)
[2024-08-19 07:18] LABS: African American GFR (CKD) >90 (>60 ml/min/1.73 sqM); Anion Gap 11 mmol/L; Blood Urea Nitrogen 17 mg/dL (7-17); Carbon Dioxide 22 mmol/L (22-30); Chloride 107 mmol/L (98-107); Glucose 86 mg/dL (74-99); Non-African American GFR(CKD) >90 (>60 ml/min/1.73 sqM); Potassium 3.7 mmol/L (3.5-5.1); Sodium 140 mmol/L (137-145)
[2024-08-19 07:36] LABS: Glucose,Whole Blood 84 mg/dL (70-110)
[2024-08-19] MEDS: INSULIN LISPRO (HumaLOG) 100 UNIT/ML 10 mL VL SQ SCH (07:38)
[2024-08-19] MEDS: METOPROLOL TARTRATE 25 MG TAB PO SCH (08:42)
[2024-08-19] MEDS: ATORVASTATIN 80 MG TAB PO SCH (08:42)
[2024-08-19] MEDS: ACETAMINOPHEN TAB 325 MG TAB PO PRN (08:51)
[2024-08-19 10:10] LABS: T4, Free (Free Thyroxine) 1.48 ng/dL (0.78-2.19)
[2024-08-19 11:47] LABS: Glucose,Whole Blood 80 mg/dL (70-110)
--- NOTE | 2024-08-19 12:06 | P.CRDCN ---
History of Present Illness Consult date: 08/19/24 Reason for Consult (text): NSTEMI History of present illness: This is a 49-year-old female with no previous cardiac history and does not follow with a hot blaster. Patient has a past medical history of diabetes. We have been asked to evaluate the patient for NSTEMI. Patient gives history that she has had a viral illness with cough fever and headache. She has been on course of prednisone and Z-Doyle. There was a reason for her coming into the hospital. She was found to have elevated troponins and our consult was added. She denies chest pain chest pressure, chest tightness. No shortness of breath. Blood pressure 116/79, heart rate 75, pulse ox 95% on room air. Patient is seen today in the emergency center waiting for a bed on the cardiac stepdown unit. Patient has been started on heparin drip. Dr. Moeller discussed recommendations with the patient for either conservative management with continuing heparin drip, obtain echocardiogram and plan for a stress test tomorrow or will forward with cardiac catheterization. Patient would prefer to do conservative management. Echocardiogram has been ordered. -EKG: Sinus rhythm with T wave inversion -Chest x-ray: Bronchitis. -CT brain: No evidence of acute intracranial pathology. -Laboratory studies: Troponin 0.234, 0.659, 0.434. TSH 5.01 and normal free T41.48. CBC is unremarkable. D-dimer 0.25. Sodium 136, potassium 4, BUN 21 creatinine 0.65. ALT 37. proBNP 108. -Home cardiac medications: None. Review Of Systems: At the time of my exam: CONSTITUTIONAL: Denies fever or chills. HEENT: Denies blurred vision, vision changes, or eye pain. Denies hemoptysis CARDIOVASCULAR: Denies chest pain. Denies orthopnea. Denies PND. Denies palpitations RESPIRATORY: Denies shortness of breath. GASTROINTESTINAL: Denies abdominal pain. Denies nausea or vomiting. HEMATOLOGIC: Denies bleeding disorders. GENITOURINARY: Denies any blood in urine. SKIN: Denies puritis. Denies rash. Physical examination: Gen: This is a 49-year-old female in no acute distress. VS: reviewed HEENT: Head is atraumatic, normocephalic. Pupils equal, round. Sclerae is anicteric. NECK: Supple. No JVD. LUNGS: Clear to auscultation. No wheezes or rhonchi. No intercostal retractions. HEART: Regular rate and rhythm. No murmur. ABDOMEN: Soft No tenderness. EXTREMITIES: No pedal edema. No calf tenderness. NEUROLOGICAL: Patient is awake, alert and oriented x3. Assessment: NSTEMI Possible pericarditis Recent viral infection Diabetes Plan: Continue heparin drip for now. We will evaluate echocardiogram and most likely discontinue the heparin drip later this afternoon Patient has been started on aspirin 81 mg, Lipitor 80 mg, Lopressor 25 mg twice daily Obtain 2-D echocardiogram and Doppler study to assess cardiac structure and function N.p.o. after midnight for anticipated stress echocardiogram on Friday Further recommendations to follow based upon clinical course Thank you kindly for this consultation. Nurse practitioner note has been reviewed, I agree with documented findings and plan of care. Patient was seen and examined. Past Medical History Past Surgical History: Cholecystectomy Medications and Allergies Home Medications Medication Instructions Recorded Confirmed Type Atorvastatin [Lipitor] 20 mg PO DAILY 08/19/24 08/19/24 History Azithromycin [Zithromax Z Pack] See Taper PO DIRECTED 08/19/24 08/19/24 History Dulaglutide [Trulicity] 4.5 mg SQ FR 08/19/24 08/19/24 History Empagliflozin [Jardiance] 25 mg PO DAILY 08/19/24 08/19/24 History Fenofibrate [Lofibra] 160 mg PO DAILY 08/19/24 08/19/24 History L.acidoph,Paracasei, B.lactis 1 cap PO DAILY 08/19/24 08/19/24 History [Probiotic] methylPREDNISolone [Medrol Dose See Taper PO DIRECTED 08/19/24 08/19/24 History Pack] Allergies Allergy/AdvReac Type Severity Reaction Status Date / Time No Known Allergies Allergy Verified 08/19/24 07:24 Physical Exam Vitals: Vital Signs Temp Pulse Resp BP Pulse Ox 08/19/24 06:00 97.8 F 75 18 116/79 95 08/19/24 05:00 64 14 119/80 94 L 08/19/24 04:00 66 126/79 94 L 08/19/24 02:24 89 18 120/77 97 08/19/24 01:00 82 18 118/72 94 L 08/18/24 23:24 98.0 F 82 18 136/88 95 08/18/24 21:30 152/91 08/18/24 21:26 97.8 F 69 18 147/103 95 Intake and Output 08/18/24 08/19/24 08/19/24 22:59 06:59 14:59 Other: Weight 86.183 kg Results 08/19/24 06:08 08/19/24 06:08 Cardiac Enzymes 08/18/24 08/18/24 08/19/24 Range/Units 22:50 22:50 00:53 AST 31 (14-36) U/L Troponin I 0.234 H* 0.659 H* (0.000-0.034) ng/mL Coagulation 08/18/24 Range/Units 22:50 PT 11.2 (10.0-12.5) sec APTT 21.3 L (22.0-30.0) sec CBC 08/18/24 08/19/24 Range/Units 22:50 06:08 WBC 5.91 7.43 (4.50-10.00) 10*3/uL RBC 4.44 4.21 (4.10-5.20) 10*6/uL Hgb 14.4 13.5 (12.0-15.0) g/dL Hct 40.9 39.6 (37.2-46.3) % Plt Count 190 198 (140-440) 10*3/uL Comprehensive Metabolic Panel 08/18/24 08/19/24 Range/Units 22:50 06:08 Sodium 136 L 140 (137-145) mmol/L Potassium 4.0 3.7 (3.5-5.1) mmol/L Chloride 103 107 (98-107) mmol/L Carbon Dioxide 17 L 22 (22-30) mmol/L BUN 21 H 17 (7-17) mg/dL Creatinine 0.65 0.59 (0.52-1.04) mg/dL Glucose 172 H 86 (74-99) mg/dL Calcium 9.4 9.0 (8.4-10.2) mg/dL AST 31 (14-36) U/L ALT 37 H (4-34) U/L Alkaline Phosphatase 64 (38-126) U/L Total Protein 7.9 (6.3-8.2) g/dL Albumin 4.6 (3.5-5.0) g/dL Current Medications Generic Name Dose Route Start Last Admin Trade Name Freq PRN Reason Stop Dose Admin Acetaminophen 650 mg 08/19/24 02:14 Acetaminophen Tab 325 Mg Tab PO Q6HR PRN Pain Alprazolam 0.25 mg 08/19/24 02:14 Alprazolam 0.25 Mg Tab PO QID PRN Anxiety Aspirin 81 mg 08/20/24 09:00 Aspirin 81 Mg PO DAILY [facility] Atorvastatin Calcium 80 mg 08/19/24 09:00 Atorvastatin 80 Mg Tab PO DAILY [facility] Dextrose/Water 25 ml 08/19/24 03:13 Dextrose 50% Syringe 50 Ml IVP PER PROTOCOL PRN Hypoglycemia Protocol Dextrose/Water 50 ml 08/19/24 03:13 Dextrose 50% Syringe 50 Ml IVP PER PROTOCOL PRN Hypoglycemia Protocol Heparin Sodium/Sodium Chloride 250 mls @ 9.997 mls/hr 08/19/24 02:15 08/19/24 03:18 25,000 unit/ Sodium Chloride IV 11.6 units/kg/hr .Q24H [facility] 9.997 mls/hr Administration Protocol 11.6 UNITS/KG/HR Lactated Ringer's 1,000 mls @ 100 mls/hr 08/19/24 06:45 08/19/24 06:45 Lactated Ringers IV 100 mls/hr .Q10H [facility] Administration Insulin Human Lispro 0 unit 08/19/24 07:30 Insulin Lispro (Humalog) 100 Unit/Ml 10 Ml Vl SQ ACHS [facility] Protocol Metoprolol Tartrate 25 mg 08/19/24 09:00 Metoprolol Tartrate 25 Mg Tab PO BID [facility] Nitroglycerin 0.4 mg 08/19/24 02:14 Nitroglycerin Sl Tabs 0.4 Mg Tab SUBLINGUAL Q5M PRN Chest Pain Intake and Output 08/18/24 08/19/24 08/19/24 22:59 06:59 14:59 Other: Weight 86.183 kg 08/19/24 06:08 08/19/24 06:08
[2024-08-19 17:18] LABS: Glucose,Whole Blood 102 mg/dL (70-110)
[2024-08-19] MEDS: ALPRAZolam 0.25 MG TAB PO PRN (17:23)
[2024-08-19] MEDS: HEPARIN SODIUM 1,000 UN/ML (10ML VL) IV PRN (19:21)
[2024-08-19 20:19] LABS: Glucose,Whole Blood 231 mg/dL (70-110)
[2024-08-20 06:01] LABS: Glucose,Whole Blood 107 mg/dL (70-110)
[2024-08-20 08:08] VITALS: RESP 16
[2024-08-20 08:13] LABS: Mean Platelet Volume 10.4 fL (9.5-12.2); Platelet Count 188 10*3/uL (140-440)
[2024-08-20 08:47] LABS: African American GFR (CKD) >90 (>60 ml/min/1.73 sqM); Anion Gap 10 mmol/L; Blood Urea Nitrogen 12 mg/dL (7-17); Carbon Dioxide 21 mmol/L (22-30); Chloride 106 mmol/L (98-107); Glucose 109 mg/dL (74-99); Non-African American GFR(CKD) >90 (>60 ml/min/1.73 sqM); Potassium 3.8 mmol/L (3.5-5.1); Sodium 137 mmol/L (137-145)
[2024-08-20] MEDS ORDERED: ASPIRIN 325 MG TAB PO SCH (09:00)
--- NOTE | 2024-08-20 10:39 | P.PN ---
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 Patient has a past medical history of diabetes. We have been asked to evaluate the patient for NSTEMI. Patient gives history that she has had a viral illness with cough fever and headache. She has been on course of prednisone and Z-Doyle. There was a reason for her coming into the [facility]. She was found to have elevated troponins and our consult was added. She denies chest pain chest pressure, chest tightness. No shortness of breath. Blood pressure 116/79, heart rate 75, pulse ox 95% on room air. Patient is seen today in the emergency center waiting for a bed on the cardiac stepdown unit. Patient has been started on heparin drip. Dr. Moeller discussed recommendations with the patient for either conservative management with continuing heparin drip, obtain echocardiogram and plan for a stress test tomorrow or will forward with cardiac catheterization. Patient would prefer to do conservative management. Echocardiogram has been ordered. -EKG: Sinus rhythm with T wave inversion -Chest x-ray: Bronchitis. -CT brain: No evidence of acute intracranial pathology. -Laboratory studies: Troponin 0.234, 0.659, 0.434. TSH 5.01 and normal free T41.48. CBC is unremarkable. D-dimer 0.25. Sodium 136, potassium 4, BUN 21 creatinine 0.65. ALT 37. proBNP 108. -Home cardiac medications: None. 08/20/2024 Patient seen and examined on the cardiac stepdown unit. Preliminary report on the echocardiogram reveals normal EF. Heparin drip will be discontinued and patient will move forward with stress echocardiogram scheduled for today. Patient denies chest pain, chest pressure, chest tightness. Blood pressure 126/80, heart rate 82, pulse ox 97% on room air. Physical examination: Gen: This is a 49-year-old female in no acute distress. VS: reviewed HEENT: Head is atraumatic, normocephalic. Pupils equal, round. Sclerae is anicteric. NECK: Supple. No JVD. LUNGS: Clear to auscultation. No wheezes or rhonchi. No intercostal retractions. HEART: Regular rate and rhythm. No murmur. ABDOMEN: Soft No tenderness. EXTREMITIES: No pedal edema. No calf tenderness. NEUROLOGICAL: Patient is awake, alert and oriented x3. Assessment: NSTEMI, elevated troponins most likely related to recent viral infection. Possible pericarditis Recent viral infection Diabetes Plan: Discontinue heparin drip Continue aspirin 81 mg, Lipitor 80 mg, Lopressor 25 mg twice daily N.p.o. Stress echocardiogram today If stress test is unremarkable, patient is cleared for discharge and may follow- up with Dr. Moeller in 2 weeks. Nurse practitioner note has been reviewed, I agree with documented findings and plan of care. Patient was seen and examined. Objective - Vital Signs Vital signs: Vital Signs Temp 98.6 F 08/20/24 08:06 Pulse 82 08/20/24 08:06 Resp 16 08/20/24 08:06 BP 126/80 08/20/24 08:06 Pulse Ox 97 08/20/24 08:06 FiO2 Intake & Output 08/19/24 08/20/24 08/20/24 18:59 06:59 18:59 Intake Total 1325.281 Balance 1325.281 Weight 86.183 kg 84.6 kg Intake: Intake, IV Titration 245.281 Amount Heparin Sod,Pork in 0.45% 245.281 NaCl 25,000 unit In 0.45 % NaCl 1 250ml.bag @ 11.6 UNITS/KG/HR 9.997 mls/hr IV .Q24H [facility] Rx#: [id number] Oral 1080 Other: Voiding Method Toilet Toilet # Voids 2 - Labs CBC & Chem 7: 08/20/24 07:35 08/20/24 07:35 Labs: Abnormal Lab Results - Last 24 Hours (Table) 08/19/24 08/20/24 08/20/24 Range/Units 20:17 00:04 07:35 APTT 35.2 H (22.0-30.0) sec Carbon Dioxide 21 L (22-30) mmol/L Glucose 109 H (74-99) mg/dL POC Glucose (mg/dL) 231 H (70-110) mg/dL 08/20/24 Range/Units 07:35 APTT 36.3 H (22.0-30.0) sec Carbon Dioxide (22-30) mmol/L Glucose (74-99) mg/dL POC Glucose (mg/dL) (70-110) mg/dL
[2024-08-20 11:50] LABS: Glucose,Whole Blood 194 mg/dL (70-110)
[2024-08-20] MEDS: FENOFIBRATE 160 MG TAB PO SCH (11:55)
[2024-08-20] MEDS: ASPIRIN 81 MG PO SCH (11:55)
[2024-08-20 16:03] LABS: Chol/HDL Ratio 3.31 Ratio; LDL Cholesterol,Calculated 17.3 mg/dL (0.0-131.0)
[2024-08-20 16:28] LABS: Glucose,Whole Blood 130 mg/dL (70-110)
--- NOTE | 2024-08-20 16:44 | P.PN ---
Subjective Progress Note Date: 08/20/24 Patient is a 49 year old female with past history of diabetes and cholecystectomy presented to the ED with headache. Patient states having cough since Friday and being treated for a sinus infection with Medrol Dosepak and Z- Doyle by urgent care. She reports having a persistent cough. Today she had a violent coughing episode and since then she had a sudden onset sharp headache and states that she has never had a headache like this before. Reported the pain is an 8 out of 10 severity. Associated with that she has experienced substernal chest pain, non radiating. She also experienced nausea. Moreover she reports epigastric discomfort which is similar to when she had her cholecystectomy last October. She also had a urethral sling placed in Jan 2023 and has been experiencing issues with that lately and has an appointment for evaluation for next . The patient had plans to go to [place] for her trip later today. Denies smoking, occasional alcohol intake. She reports history of CAD on her mother's side of the family. Denies fever, chills, palpitations, abdominal pain, vomiting, hematuria, dysuria, hematochezia, melena, headache, slurred speech, numbness, tingling, lightheadedness, blurred vision, double vision. ED documentation reviewed. In the ED patient was treated with acetaminophen, aspirin, metoclopramide, morphine, ondansetron, diphenhydramine, 0.9 normal saline. 08/20/2024patient seen and examined at bedside. She is feeling well, no chest pain, palpitations or shortness of breath. Plan for 2D echocardiogram and Doppler, stress echo completed today. Review of systems: As per HPI Physical examination: Vital signs reviewed General: nontoxic, no distress, appears at stated age Cardiovascular: S1 S2 reg, no murmur Lungs: CTA bilateral, no rhonchi, no rales, no accessory muscle use Abdominal: soft, non-tender to palpation Extremities: No cyanosis, clubbing, or pedal edema. Neuro: Alert, Oriented, Gross neurological examination did not reveal any focal deficits. Today significant findings: Labsbicarb 21, glucose 109, lipid panel cholesterol 245, VLDL 49, HDL 28 Imagingechocardiogram pending Assessment/Plan: Patient is a 49 year old female with past history of diabetes and cholecystectomy presented to the ED with headache. Patient admitted to internal medicine service. Active: #. NSTEMI #. Possible viral pericarditis/myocarditis troponin I 0.234, 0.659 EKG independently interpreted as sinus rhythm, rate 62 bpm, QTc 410 ms Received Aspirin 324 mg in the ED Continue Lipitor 80 mg daily, Aspirin 81 mg PO daily, Metoprolol 25 mg PO BID Discontinue heparin drip Continue Nitroglycerin 0.4 mg SL Q5M PRN TSH 5.0, free T4 1.4, A1c 6.8, lipid panel cholesterol 245, VLDL 49, HDL 28 Obtain stress echocardiogram, echocardiogram Continue telemetry monitoring Cardiology consulted #. Type II diabetes mellitus A1c 6.8 in May 2024 Insulin sliding scale and ACHS blood glucose monitoring Monitor for hypoglycemia #. HAGMA + NAGMA, improving Discontinue fluids Monitor BMP Patient takes Jardiance and Trulicity at home, Resume home meds once verified by pharmacy F: P.o. E: Replete as required N: Heart healthy diet A: Bed rest DVT prophylaxis: Early ambulation CODE STATUS: FULL CODE Discussed with: Patient Anticipated discharge place: Today or tomorrow. Charli Lutz MD Internal Medicine Resident, PGY1 Dictation was produced using [employer] dictation software. please excuse any grammatical, word or spelling errors. I have seen and evaluated the patient today. Discussed with the resident and agree with the residents finding and plan as documented in the resident's note. Changes highlighted in blue font Objective - Vital Signs Vital signs: Vital Signs Temp 98.5 F 08/19/24 20:00 Pulse 68 08/20/24 04:00 Resp 15 08/20/24 04:00 BP 103/72 08/20/24 04:00 Pulse Ox 97 08/20/24 04:00 FiO2 Intake & Output 08/19/24 08/20/24 08/20/24 18:59 06:59 18:59 Intake Total 1325.281 Balance 1325.281 Weight 86.183 kg 84.6 kg Intake: Intake, IV Titration 245.281 Amount Heparin Sod,Pork in 0.45% 245.281 NaCl 25,000 unit In 0.45 % NaCl 1 250ml.bag @ 11.6 UNITS/KG/HR 9.997 mls/hr IV .Q24H [facility] Rx#: [id number] Oral 1080 Other: Voiding Method Toilet Toilet # Voids 2 - Labs CBC & Chem 7: 08/20/24 07:35 08/20/24 07:35 Labs: Abnormal Lab Results - Last 24 Hours (Table) 08/19/24 08/19/24 08/19/24 Range/Units 06:08 06:08 06:30 APTT 31.4 H (22.0-30.0) sec POC Glucose (mg/dL) (70-110) mg/dL Hemoglobin A1c 6.8 H (<=6.0) % Troponin I (0.000-0.034) ng/mL TSH 5.010 H (0.465-4.680) mIU/L 08/19/24 08/19/24 08/20/24 Range/Units 07:14 20:17 00:04 APTT 35.2 H (22.0-30.0) sec POC Glucose (mg/dL) 231 H (70-110) mg/dL Hemoglobin A1c (<=6.0) % Troponin I 0.434 H* (0.000-0.034) ng/mL TSH (0.465-4.680) mIU/L
[2024-08-20 17:57] VITALS: BP 110/69; PULSE 68; TEMP 98.2
--- NOTE | 2024-08-20 18:37 | CA ---
Stress Echo Report Rekha Spence Age: 49 Gender: F : 1975 Exam Date: 08/20/2024 10:17 Exam Location: [place] [facility] Ht (in): 67 Wt (lb): 190 Ordering Physician: Luciana Null Referring Physician: [id number] Windows [employer] Specialist: SAIDA GUZMÁN Technologist Procedure CPT: Indication: elevated trops ICD-9 Codes: Rhythm: Patient History: CP, SEVERINO, NUMBNESS, DM. Cardiac Medications: SEE CHART,,,,, Medications in past 24 hours: Contrast: Stress Results Protocol: Virgil Total dose(mL): Exercise Duration (min:sec): Max ST Depression (mm): Angina Score: Gordon Score: METS: 8.5 Resting HR: 97 Resting BP: 114 / 72 Peak HR: 135 Peak BP: 151 / 89 Max Predicted HR: 169 80 % Max Predicted HR Target HR: 144 Double Product: [id number] Stress Summary: BP Response: Reason for Termination: MAX EXERTION Cardiac Symptoms: NO SYMPTOMS ECG Analysis Resting ECG: Stress ECG: Arrhythmia: Echo Analysis Resting Echo: Peak Echo Analysis: MEASUREMENTS (Male/Female) Normal Values CONCLUSIONS The patient achieved 80% of maximum predicted heart rate Normal electrocardiogram and echocardiogram to the level of heart rate achieved Overall nondiagnostic stress test due to the patient not achieving 85% of maximum predicted heart Dr. Zeeshan Yanez MD (Electronically Signed) Final Date: 20 August 2024 18:36
--- NOTE | 2024-08-20 18:40 | CA ---
Transthoracic Echo Report Name: Rekha Spence Age: 49 Gender: F : 1975 Exam Date: 08/20/2024 08:44 Exam Location: [place] [facility] Ht (in): Wt (lb): Ordering Physician: Bonnie Donovan MD Attending/Referring Phys: [employer] Consultant Magy Sanchez RDCS Procedure CPT: Indications: nstemi Cardiac Hx: Technical Quality: Fair Contrast 1: Total Dose (mL): Contrast 2: Total Dose (mL): MEASUREMENTS (Male / Female) Normal Values 2D ECHO LV Diastolic Diameter PLAX 4.7 cm 4.2 - 5.9 / 3.9 - 5.3 cm LV Systolic Diameter PLAX 3.8 cm IVS Diastolic Thickness 1.3 cm 0.6 - 1.0 / 0.6 - 0.9 cm LVPW Diastolic Thickness 1.2 cm 0.6 - 1.0 / 0.6 - 0.9 cm LV Relative Wall Thickness 0.6 RV Internal Dim ED PLAX 2.0 cm LVOT Diameter 2.0 cm LA Systolic Diameter LX 3.7 cm 3.0 - 4.0 / 2.7 - 3.8 cm LV Diastolic Volume MOD BP 51.6 cm??? 67 - 155 / 56 - 104 cm??? LV Systolic Volume MOD BP 21.2 cm??? 22 - 58 / 19 - 49 cm??? LV Ejection Fraction MOD BP 58.9 % >= 55 % LV Diastolic Volume MOD 4C 56.4 cm??? LV Systolic Volume MOD 4C 21.3 cm??? LV Ejection Fraction MOD 4C 62.1 % LV Diastolic Length 4C 7.9 cm LV Systolic Length 4C 6.2 cm LV Diastolic Volume MOD 2C 43.0 cm??? LV Systolic Volume MOD 2C 19.3 cm??? LV Ejection Fraction MOD 2C 55.2 % LV Diastolic Length 2C 7.1 cm LV Systolic Length 2C 6.9 cm LA Volume 19.5 cm??? 18 - 58 / 22 - 52 cm??? DOPPLER MV Area PHT 3.8 cm??? Mitral E Point Velocity 62.3 cm/s Mitral A Point Velocity 87.9 cm/s Mitral E to A Ratio 0.7 MV Deceleration Time 199.6 ms FINDINGS Left Ventricle Left ventricular ejection fraction is estimated at 55-60%. Moderately increased septal wall thickness. Mildly increased posterior wall thickness. Normal Left ventricular size. Normal systolic function with no obvious regional wall motion abnormalities. Right Ventricle Normal right ventricular size and function. Right ventricular systolic pressure within normal limits. Right Atrium Normal right atrial size. Left Atrium Normal left atrial size. Mitral Valve Structurally normal mitral valve. Trace mitral regurgitation. No mitral stenosis. Aortic Valve Trileaflet aortic valve. No aortic stenosis. No aortic regurgitation. Tricuspid Valve Structurally normal tricuspid valve. Trace tricuspid regurgitation. No tricuspid stenosis. Pulmonic Valve Structurally normal pulmonic valve. Trace pulmonic regurgitation. No pulmonic stenosis. Pericardium No pericardial or pleural effusion. Aorta Normal size aortic root and proximal ascending aorta. CONCLUSIONS Normal LV systolic function Previewed by: Dr. Zeeshan Yanez MD (Electronically Signed) Final Date: 20 August 2024 18:40
--- NOTE | 2024-08-21 07:17 | P.DS ---
Providers Date of admission: 08/19/24 02:14 Expected date of discharge: 08/20/24 Attending physician: Anish Johnson MD Consults: 08/19/24 02:14 Consult Physician Urgent Consulting Provider: [facility] Consult Reason/Comments: NSTEMI Do you want consulting provider notified?: Yes, Notify in am Primary care physician: Eduar Hale [facility] Course: Discharge Diagnosis: NSTEMI, likely type II Suspected myocarditis Type 2 diabetes Metabolic acidosis Hospital Course: 49 year old female with past history of diabetes and cholecystectomy presented to the ED with headache. Patient states having cough since Friday and being treated for a sinus infection with Medrol Dosepak and Z-Doyle by urgent care. She reports having a persistent cough. Today she had a violent coughing episode and since then she had a sudden onset sharp headache and states that she has never had a headache like this before. Reported the pain is an 8 out of 10 severity. Associated with that she has experienced substernal chest pain, non radiating. She also experienced nausea. Moreover she reports epigastric discomfort which is similar to when she had her cholecystectomy last October. She also had a urethral sling placed in Jan 2023 and has been experiencing issues with that lately and has an appointment for evaluation for next . The patient had plans to go to [place] for her trip later today. Denies smoking, occasional alcohol intake. She reports history of CAD on her mother's side of the family. Denies fever, chills, palpitations, abdominal pain, vomiting, hematuria, dysuria, hematochezia, melena, headache, slurred speech, numbness, tingling, lightheadedness, blurred vision, double vision. ED documentation reviewed. In the ED patient was treated with acetaminophen, aspirin, metoclopramide, morphine, ondansetron, diphenhydramine, 0.9 normal saline. Vitals on admission T 97.8 F, ME 69 bpm, RR 18, BP 147/103, SPO2 95% on room air EKG independently interpreted as sinus rhythm, rate 62 bpm, QTc 410 ms Chest x-ray shows bronchitis which may be of infectious or inflammatory etiologies, no consolidation or pleural effusion Brain CT shows no evidence of acute intracranial pathology Labs on admission show WBC 5.91, hemoglobin 14.4, platelet 190, INR 1.0, APTT 21.3, D-dimer 0.25, sodium 136, potassium 4.0, bicarb 17, anion gap 16, BUN 21, creatinine 0.65, glucose 172, ALT 37, NT-proBNP 108, troponin I 0.234, 0.659 Respiratory panel is negative Patient started on heparin drip. Cardiology consulted. Echocardiogram showed normal LV systolic function. Stress echo was nondiagnostic. Patient denies any further chest pain. Patient being discharged home with close follow-up with PCP and cardiology. Patient seen and examined at bedside. Vital signs reviewed and stable. General: Nontoxic, no distress, appears at stated age Derm: Warm, dry Head: Atraumatic, normocephalic, symmetric Eyes: EOMI, no lid lag, anicteric sclera Mouth: No lip lesion, mucus membranes moist Cardiovascular: S1S2 reg, no murmur Lungs: CTA bilateral, no rhonchi, no rales, no accessory muscle use Abdominal: Soft, nontender to palpation, no guarding, no appreciable org anomegaly Ext: No gross muscle atrophy, no edema, no contractures Neuro: CN II-XI grossly intact, no focal neuro deficits Psych: Alert, oriented, appropriate affect A total of 36 minutes of time were spent preparing this complex discharge summary. Patient was discharged on 08/20/2024 at 1858. Patient Condition at Discharge: Stable Plan - Discharge Summary Discharge Rx Participant: No New Discharge Prescriptions: New Aspirin 81 mg PO DAILY #90 tab Metoprolol Tartrate [Lopressor] 25 mg PO BID #90 tab Atorvastatin [Lipitor] 80 mg PO DAILY #90 tab Continue Empagliflozin [Jardiance] 25 mg PO DAILY L.acidoph,Paracasei, B.lactis [Probiotic] 1 cap PO DAILY Dulaglutide [Trulicity] 4.5 mg SQ FR Fenofibrate [Lofibra] 160 mg PO DAILY Discontinued methylPREDNISolone [Medrol Dose Pack] See Taper PO DIRECTED Atorvastatin [Lipitor] 20 mg PO DAILY Azithromycin [Zithromax Z Pack] See Taper PO DIRECTED Discharge Medication List Dulaglutide [Trulicity] 4.5 mg SQ FR 08/19/24 [History] Empagliflozin [Jardiance] 25 mg PO DAILY 08/19/24 [History] Fenofibrate [Lofibra] 160 mg PO DAILY 08/19/24 [History] L.acidoph,Paracasei, B.lactis [Probiotic] 1 cap PO DAILY 08/19/24 [History] Aspirin 81 mg PO DAILY #90 tab 08/20/24 [Rx] Atorvastatin [Lipitor] 80 mg PO DAILY #90 tab 08/20/24 [Rx] Metoprolol Tartrate [Lopressor] 25 mg PO BID #90 tab 08/20/24 [Rx] Follow up Appointment(s)/Referral(s): Eduar Hale DO [Primary Care Provider] - 1-2 days Domenico Paula MD [STAFF PHYSICIAN] - 2 Weeks Activity/Diet/Wound Care/Special Instructions: Every disease is a spectrum and a small chance still exists that a serious condition could develop, for this reason, please monitor yourself closely for new, changing or worsening symptoms, symptoms that persist beyond 48 hours, symptom such as changes in vision, slurred speech, numbness or weakness, facial droop fever, inability to tolerate/keep down fluids or your medications, inability to follow up with outpatient providers as instructed and should you experience these symptoms or should you have any further concerns for your wellbeing please return to the ED or call 911 immediately. Your pain can be treated with ibuprofen and acetaminophen. You can take up to 400-600 mg of ibuprofen (Advil, Motrin) 3 times daily (every 8 hours) but can also use lower doses if this relieves your pain. Some people prefer naproxen (Aleve, Naprosyn) which can be taken in doses of 500 mg up to twice a day. Do not take both of these medicines together, and do not combine either with ketorolac (Toradol), meloxicam (Mobic), or indomethacin (Tivorbex). Some people can develop stomach discomfort with higher doses of either ibuprofen or naproxen, if this develops decrease your dose or stop taking it. If you need to take this dose daily for more than a week, please schedule an appointment for re-evaluation with your PCP. Please take these medications with food. You can take up to 1000 mg of acetaminophen (Tylenol) every 6 hours. Be careful as this is included in some medicines like Nyquil, [place], Percocet, Vicodin, STANBACK, Goody's Powders, and Excedrin. You can also use lidocaine patches for topical pain. You can purchase 4% patches over the counter at most drug stores. These can be helpful for pain from your muscles or bones. PLEASE call your primary care physician as soon as possible to arrange / discuss plan for followup appointment. Appointment in the next 1-3 days is strongly encouraged if possible. PLEASE let us know here before you leave if there is anything further we can do to be of any assistance. Take care and feel Better! Discharge Disposition: HOME SELF-CARE
== END 2024-08-20 19:20 | disposition home or self-care (01) | DRG 152 ==
LOC: EC 21:23 → 3SCARD 08-19 02:14
PROVIDERS: ADMIT Student in an Organized Health Care Education/Training Program; ATTEND Student in an Organized Health Care Education/Training Program
PROC: 4A02XM4 Measurement of Cardiac Total Activity, External Approach (ICD-10-PCS; principal; 2024-08-20)
DX: J06.9 Acute upper respiratory infection, unspecified (principal); I21.A1 Myocardial infarction type 2; E87.20 Acidosis, unspecified; E11.9 Type 2 diabetes mellitus without complications; Z11.52 Encounter for screening for COVID-19; I25.10 Atherosclerotic heart disease of native coronary artery without angina pectoris; J40 Bronchitis, not specified as acute or chronic; Z79.82 Long term (current) use of aspirin; Z79.84 Long term (current) use of oral hypoglycemic drugs; Z79.899 Other long term (current) drug therapy
CPT/HCPCS: 36415; 70450; 71046; 80048; 80053; 80061; 83036; 83880; 84439; 84443; 84484; 85025; 85027; 85049; 85379; 85610; 85730; 87636; 93005; 93306; 93351; 96361; 96365; 96366; 96375; 99291